=== PATIENT | male | born 1985 | race Caucasian/White ===

== ENCOUNTER 2023-06-06 12:00 | Emergency (ER) | payer OTHER, SELFPAY ==
[2023-06-06] VITALS (12 sets, daily range): BP systolic 121–133; BP diastolic 80–88; PULSE 73–79; RESP 18–20; TEMP 36.3–36.6; O2SAT 97–100
--- NOTE | ~2023-06-06 | XR_ITS ---
XR ankle RT min 3V DATE: 06/06/2023 12:45 INDICATION: Crush injury TECHNIQUE: 4 views COMPARISON: None FINDINGS: There is a comminuted intra-articular fracture of the distal tibia, beginning in the distal tibial shaft, with multiple fracture lines extending into the tibiotalar joint. There is approximate ly one cortical width lateral displacement and 2 cortical widths posterior displacement. The ankle mortise appears intact. The distal fibula appears intact. IMPRESSION: Comminuted intra-articular fracture of the distal tibia Reviewed, dictated and finalized at location B.
--- NOTE | ~2023-06-06 | XR_ITS ---
XR tibia fibula RT 2V DATE: 06/06/2023 12:45 INDICATION: Crush injury TECHNIQUE: AP and lateral views of the right lower leg COMPARISON: None FINDINGS: There is a comminuted intra-articular fracture of the distal tibia beginning in the distal tibial shaft, with multiple fracture lines extending into the tibiotalar joint. There is approximatel y 2 cortical widths posterior displacement and one cortical width lateral displacement of the distal tibial fracture. The ankle mortise appears intact. Normal alignment at the knee joint. No other tibial or fibular fracture is evident. IMPRESSION: Comminuted intra-articular fracture of distal tibia Reviewed, dictated and finalized at location B.
--- NOTE | ~2023-06-06 | XR_ITS ---
XR foot RT min 3V DATE: 06/06/2023 12:45 INDICATION: Crush injury TECHNIQUE: 3 views including crosstable lateral COMPARISON: None FINDINGS: Comminuted intra-articular fracture of the distal tibia is noted. No other fracture or dislocation is detected. IMPRESSION: Comminuted intra-articular fracture of the distal tibia Reviewed, dictated and finalized at location B.
--- NOTE | 2023-06-06 12:23 | ED.LOWEXIN ---
HPI - Extremity Injury (Lower) General Chief Complaint: Extremity Injury, Lower Stated Complaint: leg injury Time Seen by Provider: 06/06/23 12:19 Source: patient, family and EMS Mode of arrival: EMS Limitations: no limitations History of Present Illness HPI Narrative: 37 years old white male came to the emergency room with pain and injury at the right ankle prior to arrival to the emergency room. Patient reported that his right lower leg got squeezed between a concrete wall and a rolling equipment/power andrew. Complaining of severe pain at the ankle area, denies other injuries. Patient is healthy otherwise, history of anxiety and depression. Patient came by ambulance, splint on. Related Data Allergies Allergy/AdvReac Type Severity Reaction Status Date / Time No Known Allergies Allergy Verified 06/06/23 12:29 Review of Systems Review of Systems: All systems reviewed & are unremarkable except as noted in HPI and below Exam Narrative: General appearance: Well-developed, well-nourished Skin: Normal color Head: Normocephalic, nontraumatic Eyes: Clear conjunctiva Neck: Supple, nontender Chest and respiratory: Airway patent, no respiratory distress, no accessory muscle use Heart: Regular rate/rhythm Abdomen: Soft, nontender, no organomegaly, quiet bowel sounds Vascular: Normal peripheral pulses, normal capillary refill. Musculoskeletal: Right lower leg examination showed bruises, swelling, deformity at the right ankle laterally. Severe tenderness, severe limited range of motion of the ankle. Neurologic: Alert and oriented ?3, [employer] is normal as tested, no gross motor deficit Course Consultations Consultation #1: Dr. Knowles Send patient to [facility] Date: 06/06/23 Time: 14:18 Consultation #2: DR Campbell/[facility] accepted patient transfer Date: 06/06/23 Time: 14:18 Vital Signs Vital signs: Vital Signs Temperature 36.3 C L 06/06/23 12:01 Pulse Rate 79 06/06/23 12:01 Respiratory Rate 20 06/06/23 12:01 Blood Pressure 121/84 06/06/23 12:01 Pulse Oximetry 100 06/06/23 12:01 Oxygen Delivery Room Air 06/06/23 12:01 Temperature 36.3 C L 06/06/23 12:01 Pulse Rate 79 06/06/23 13:00 Respiratory Rate 18 06/06/23 13:00 Blood Pressure 129/85 06/06/23 13:00 Pulse Oximetry 98 06/06/23 13:58 Oxygen Delivery Room Air 06/06/23 12:01 MDM - Extremity Injury (Lower) MDM Narrative Medical decision making narrative: 37 years old white male came with right ankle squeezed between 2 hard objects, MRI causing the swelling, deformity and bruises. X-ray showed comminuted distal intra-articular right tibial fracture. Neurovascularly intact. Dr. Bradshaw the orthopedic on-call requested to transfer patient to [facility] for better management, suspecting compartment syndrome development. In the ED patient received Dilaudid 0.5 mg IV twice, and 4 mg of Zofran IV, short leg posterior splint. With moderate improvement. Transfer to [facility], discussed with Dr. Campbell the emergency room physician on-call. Differential Diagnosis Differential diagnosis: Likely ankle sprain and strain and ankle fracture Imaging Data Radiologist's impression: Impressions Ankle X-Ray 06/06/23 12:48 IMPRESSION: Comminuted intra-articular fracture of the distal tibia Foot X-Ray 06/06/23 12:50 IMPRESSION: Comminuted intra-articular fracture of the distal tibia Tibia/Fibula X-Ray 06/06/23 12:51 IMPRESSION: Comminuted intra-articular fracture of distal tibia Critical Care Time Critical Care Time Critical Care Time: Yes Total Critical Care Time: 30 Discharg
[2023-06-06] MEDS: HYDROmorphone HCL INJ (*CRX) 1 MG/ML SYR 0.5 MG IV PUSH ×2 (12:29→13:54)
[2023-06-06] MEDS: ONDANSETRON INJ 4 MG/2 ML VIAL IV PUSH (12:29)
== END 2023-06-06 15:10 | disposition short-term general hospital (02) ==
PROVIDERS: Emergency Provider Emergency Medicine; PCP Internal Medicine
DX: S82.301A Unspecified fracture of lower end of right tibia, initial encounter for closed fracture (principal); W23.0XXA Caught, crushed, jammed, or pinched between moving objects, initial encounter
CPT/HCPCS: 73590; 73610; 73630; 96374; 96375; 96376; 99285; J1170; J2405